=== PATIENT | female | born 1950 | race Caucasian/White ===

== ENCOUNTER 2017-03-17 08:15 | Day surgery (SDC) | payer OTHER ==
[~2017-03-17] VITALS: Ht 152.4 cm; Wt 54.4 kg
[~2017-03-17 08:15] MED LIST: 0.9% Sodium Chloride 1,000 ML IV SCH; Sodium Chloride LOK Flush 10 mL Syringe IV PRN; fentaNYL-PF 50 mCg/mL 2 mL Inj IVPUSH PRN
[2017-03-17] MEDS ORDERED: LISI10TA PO (08:32)
[2017-03-17 08:37] VITALS: BP 135/76; PULSE 73; O2SAT 98
[2017-03-17 09:13] VITALS: BP 115/59; PULSE 85; RESP 16; O2SAT 100
[2017-03-17 09:22] VITALS: BP 110/57; PULSE 91; RESP 14; O2SAT 99
--- NOTE | 2017-03-17 09:42 | ENDO ---
[address] [address] ENDOSCOPY PROCEDURE PATIENT: PANDA MEDELLIN : 1950 MR#: [id number] ADMIT: 03/17/2017 JOB ID: [id number] DATE OF SERVICE: 03/17/2017 PROCEDURE PERFORMED: Colonoscopy. INDICATIONS: Patient with a family history of colon polyps. ASA CLASSIFICATION: The patient's ASA classification is II. MALLAMPATI SCORE: Mallampati score was 2. MEDICATIONS: 1. Versed 4 mg. 2. Fentanyl 100 mcg. INSTRUMENT USED: [id number]. PREPARATION QUALITY: Good. PROCEDURE DETAILS: After informed consent was obtained, the patient was brought into the GI suite, where she was placed on oxygen via nasal cannula and monitored with continuous pulse oximeter, telemetry, and blood pressure monitoring. A time-out was performed. Then, she was placed in the left lateral decubitus position and medications were administered for sedation. Digital rectal exam was performed which was unremarkable. The colonoscope was then inserted into the rectum and advanced under direct visualization to the cecum, which was identified by the presence of the ileocecal valve and appendiceal orifice. Once the cecum was reached, the colonoscope was withdrawn back into the rectum, as the mucosa and lumen were examined. In the rectum, retroflexion was performed. Following retroflexion, remaining air in the rectum was suctioned, and procedure was completed. FINDINGS: 1. In the cecum, there was a diminutive polyp that was removed with cold biopsy forceps. 2. In the ascending colon there was an approximately 4 mm sessile polyp that was removed with a cold snare. 3. Scattered diverticula were seen throughout the left side of the colon. 4. Small internal hemorrhoids were noted on retroflexion. IMPRESSION: 1. Cecal polyp. 2. Ascending colon polyp. 3. Left-sided diverticulosis. 4. Internal hemorrhoids. RECOMMENDATIONS: 1. Fiber-rich diet. 2. Repeat colonoscopy in five years. COMPLICATIONS: None. ESTIMATED BLOOD LOSS: Less than 5 mL.
--- NOTE | 2017-03-22 12:04 | PATH ---
SURGICAL PATHOLOGY Attending Physician:Usha Montero CASE STATUS: Signed Out PATIENT NAME: PANDA MEDELLIN PID: [id number] : 1950 DATE COLLECTED:03/17/2017 00:00 SPECIMEN: 1: Colon, Polyp 2: Colon, Polyp CLINICAL HISTORY: 1). CECAL POLYP 2). ASCENDING COLON POLYP FINAL DIAGNOSIS: 1.CECAL POLYP, BIOPSY: TUBULAR ADENOMA. 2.ASCENDING COLON POLYP, BIOPSY: SESSILE SERRATED ADENOMA. ICD10 D12.6 GROSS DESCRIPTION: The specimen is received in two formalin filled containers labeled with the patient's name. 1). The specimen is labeled "cecal polyp" and consists of a 0.3 x 0.2 x 0.2 CM portion of tissue which is entirely submitted in cassette 1A. 2). The specimen is labeled "ascending colon polyp" and consists of a 0.2 x 0.2 x 0.2 CM portion of tissue which is entirely submitted in cassette 2A. 03/17/2017DC MICRO DESCRIPTION: See diagnosis. ICD-9 CODES: CPT CODES: 1: 27032 2: 15656 Electronically Signed Out Felix Kat MD, PhD [facility], [place] [address] Technical component performed at [facility], [facility] [address], [address]
== END 2017-03-17 23:59 | disposition home or self-care (01) ==
LOC: MERGE 08:15 → END 08:15
PROVIDERS: ATTEND Internal Medicine Gastroenterology
DX: Z12.11 Encounter for screening for malignant neoplasm of colon (principal); Z83.71 Family history of colonic polyps; D12.0 Benign neoplasm of cecum; D12.2 Benign neoplasm of ascending colon; K64.8 Other hemorrhoids; K57.30 Diverticulosis of large intestine without perforation or abscess without bleeding; I10 Essential (primary) hypertension
CPT/HCPCS: 45380; 45385; G0500; J2250; J3010; J7030